=== PATIENT | male | born 1965 | race Caucasian/White ===

== ENCOUNTER 2023-01-11 12:07 | Emergency (ER) | payer OTHER ==
[~2023-01-11] VITALS: Ht 185.4 cm; Wt 109.1 kg
[~2023-01-11 12:07] MED LIST: ENOX40DI11 SQ; HYDR-4383 PO; LISI-640 PO; ONQPUMP ADDCANAL
[2023-01-11 12:14] VITALS: BP 148/95
== END 2023-01-11 12:48 ==
LOC: ER 12:08
DX: I10 Essential (primary) hypertension
CPT/HCPCS: 99283